=== PATIENT | female | born 1980 | race African-American/Black ===

== ENCOUNTER 2019-10-09 09:48 | Emergency (ER) | payer SELFPAY ==
[~2019-10-09] VITALS: Ht 154.9 cm; Wt 59.0 kg
[2019-10-09] MEDS ORDERED: REMERON15 M2 PO (10:05)
== END 2019-10-09 13:15 | disposition home or self-care (01) ==
LOC: ED 09:48
DX: M79.672 Pain in left foot (principal); M25.572 Pain in left ankle and joints of left foot

== ENCOUNTER 2019-10-25 17:11 | Emergency (ER) | payer SELFPAY ==
[~2019-10-25] VITALS: Ht 154.9 cm; Wt 44.5 kg
[~2019-10-25 17:11] MED LIST: REMERON15 M2 PO
[2019-10-25] MEDS ORDERED: IBUPROFEN600 MG PO (20:32)
== END 2019-10-25 20:45 | disposition home or self-care (01) ==
LOC: ED 17:11
DX: S80.12XA Contusion of left lower leg, initial encounter (principal); S80.11XA Contusion of right lower leg, initial encounter; F17.200 Nicotine dependence, unspecified, uncomplicated; W18.39XA Other fall on same level, initial encounter; Y93.89 Activity, other specified; Y92.89 Other specified places as the place of occurrence of the external cause; Y99.8 Other external cause status